=== PATIENT | female | born 1995 | race African-American/Black ===

== ENCOUNTER 2016-04-27 15:39 | Emergency (ER) | payer OTHER ==
[~2016-04-27] VITALS: Ht 167.6 cm; Wt 102.9 kg
[2016-04-27 15:41] VITALS: TEMP 36.8; Ht 167.6 cm; Wt 102.9 kg
--- NOTE | 2016-04-27 16:39 | EMERGENCY ROOM VISIT NOTE ---
ED Visit Note First contact with patient: 16:29 CHIEF COMPLAINT: Rash HISTORY OF PRESENT ILLNESS: This 20-year-old female patient presents to the emergency department ambulatory complaining of hives which occur when she goes to the gym. She states that over the past 2 weeks, when she goes to the gym and starts to sweat, she develops hives all over her body. She states that they are itchy when they occur, but do go away without any treatment. She denies any new foods, new medications, new detergent/soaps or other environmental exposures. She denies any histories of hives. She denies facial swelling, shortness of breath, difficulty swallowing, nausea or vomiting. The patient denies any rash or itching at this time. REVIEW OF SYSTEMS: A 6 system review of systems was completed with positives and pertinent negatives listed in the HPI. ALLERGIES: No Known drug allergies MEDICATIONS: Medications PMH: No significant past medical history. SOCIAL HISTORY: The patient is a [employer] student and lives with roommates. Nonsmoker, admits to occasional alcohol use. PHYSICAL EXAM: Vital Signs: Reviewed Nurse's notes, vital signs stable. GENERAL : This is a 20-year-old female, in no acute distress, well-developed, well- nourished. SKIN: No rashes present at this time. Capillary refill less than 2 seconds. EMERGENCY DEPARTMENT COURSE: The patient was evaluated as above. She does not have any rash present at this time. She does report she has been developing hives when she goes to the gym. She brought along pictures and the skin lesions are consistent with urticaria. I recommended that the patient begin taking a daily antihistamine to prevent this reaction. I also recommended that she follow-up with a account executive trainee. She was agreeable to this. She verbalized understanding of my assessment and treatment plan and was discharged home in good condition. DIAGNOSIS: Urticaria Current/Historical Medications No Active Prescriptions or Reported Meds Allergies Coded Allergies: No Known Allergies (Unverified , 04/27/16) Vital Signs Date Time Temp Pulse Resp B/P Pulse Ox O2 Delivery O2 Flow Rate FiO2 04/27/16 16:51 90 16 133/81 97 04/27/16 15:43 98 Room Air 04/27/16 15:41 36.8 109 18 144/79 98 Room Air Departure Information Impression Primary Impression: Urticaria Dispostion Home / Self-Care Condition GOOD Prescriptions No Active Prescriptions or Reported Meds Referrals No Doctor, Assigned (PCP) Patient Instructions [facility] Additional Instructions You should begin taking an antihistamine, such as Zyrtec, Cate or Claritin once daily in the morning, as directed on the bottle. This may help with your skin reactions. You may also take the generic brand of these medications. When reactions occur, you may take Benadryl, 25-50 mg every 6 hours as needed for itching or hives. You should follow-up with a account executive trainee for further evaluation of your skin problems. Return to the emergency department with worsening hives, difficulty swallowing, difficulty breathing, facial swelling, nausea/vomiting or any other new/ concerning symptoms.
[2016-04-27 16:51] VITALS: BP 133/81; PULSE 90; O2SAT 97
== END 2016-04-27 16:51 | disposition home or self-care (01) ==
LOC: C.EDB 15:40 → C.EDD 16:51
DX: L50.9 Urticaria, unspecified (principal)